=== PATIENT | female | born 1985 | race Caucasian/White ===

== ENCOUNTER 2017-11-19 11:21 | Emergency (ER) | payer MEDICAID ==
--- NOTE | 2017-11-19 11:50 | EDM.PDOC ---
ED HPI GENERAL MEDICAL PROBLEM - General Chief Complaint: Upper Extremity Injury/Pain Stated Complaint: WRIST PAIN Time Seen by Provider: 11/19/17 11:40 Source of Information: Reports: Patient History Limitations: Reports: No Limitations - History of Present Illness INITIAL COMMENTS - FREE TEXT/NARRATIVE: Patient presents to ER with complaints of ongoing right wrist pain. Patient states she injured this on November 04 when she punched a wall. Was seen in the [facility] ER and had xrays at that time that were negative. She states she continues to have ongoing pain and questions if she may have a fracture that was missed at that time. She relates she had something similar happen to her ankle and ultimately a MRI showed a ligament tear and she had to have surgery. She has been infrequently taking tylenol and ibuprofen but it hasn't helped her all that much. 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 Recently moved to [place]. 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 [No Known Home Meds] 11/19/17 [History] Past Medical History - Past Surgical History GI Surgical History: Reports: Cholecystectomy, Other (See Below) Other GI Surgeries/Procedures: UMBILICAL REMOVAL Female Surgical History: Reports: Hysterectomy Musculoskeletal Surgical History: Reports: Other (See Below) Other Musculoskeletal Surgeries/Procedures:: R) ANKLE SURGERY Social & Family History - Tobacco Use Smoking Status *Q: Current Every Day Smoker Years of Tobacco use: 16 Packs/Tins Daily: 0.5 - Caffeine Use Caffeine Use: Reports: Coffee, Soda - Recreational Drug Use Recreational Drug Use: Yes Drug Use in Last 12 Months: Yes Recreational Drug Type: Reports: Methamphetamine Recreational Drug Use Frequency: Not Used In Over 1 Month Review of Systems - Review of Systems Review Of Systems: See Below Musculoskeletal: Reports: Joint Pain. Denies: Joint Swelling Skin: Reports: No Symptoms Neurological: Reports: No Symptoms ED EXAM, GENERAL - Physical Exam Exam: See Below Exam Limited By: No Limitations General Appearance: Alert, WD/WN, No Apparent Distress Extremities: Limited Range of Motion (patient does have discomfort with palpation to medial wrist. Mild discomfort with flexion and extension. No obvious deformity or swelling.). No: Joint Swelling Neurological: Alert, Oriented Skin Exam: Warm, Dry Course - Vital Signs Last Recorded V/S: Last Vital Signs Temp 98.8 F 11/19/17 11:24 Pulse 83 11/19/17 11:24 Resp 18 11/19/17 11:24 BP 143/99 H 11/19/17 11:24 Pulse Ox 98 11/19/17 11:24 - Orders/Labs/Meds Orders: Active Orders 24 hr Category Date Time Status Forearm 2V Rt [CR] Stat Exams 11/19/17 11:32 Taken Wrist 2V Rt [CR] Stat Exams 11/19/17 11:32 Taken - Re-Assessments/Exams Free Text/Narrative Re-Assessment/Exam: 11/19/17 Xrays reviewed and no obvious deformities or concerns noted. Departure - Departure Time of Disposition: 11:47 Disposition: Home, Self-Care 01 Condition: Good Clinical Impression: Sprain of right wrist - Discharge Information Forms: ED Department Discharge Additional Instructions: 1. Splint on as needed with use 2. Meloxicam daily 3. Follow up in 3-4 weeks if ongoing pain as further imaging may be needed 4. Contact us with any further questions or concerns. - My Orders Last 24 Hours: My Active Orders 11/19/17 11:32 Forearm 2V Rt [CR] Stat Wrist 2V Rt [CR] Stat - Assessment/Plan Last 24 Hours: My Active Orders 11/19/17 11:32 Forearm 2V Rt [CR] Stat Wrist 2V Rt [CR] Stat
== END 2017-11-19 11:58 | disposition home or self-care (01) ==
LOC: CC.ED 11:21
DX: S63.501A Unspecified sprain of right wrist, initial encounter (principal); F17.210 Nicotine dependence, cigarettes, uncomplicated; W22.8XXA Striking against or struck by other objects, initial encounter
CPT/HCPCS: 73090-RT; 73100-RT; 99283